=== PATIENT | female | born 1960 | race Two or more races ===

== ENCOUNTER 2017-02-03 16:24 | Emergency (ER) | payer BC, OTHER ==
[~2017-02-03] VITALS: Ht 154.9 cm; Wt 54.0 kg
[~2017-02-03 16:24] MED LIST: diovan; potassium
[2017-02-03 16:35] VITALS: BP 109/69
[2017-02-03] MEDS ORDERED: KETOROLAC 30 MG/1 ML IM ONE (17:00)
[2017-02-03] MEDS ORDERED: LOSA25TA5 PO (17:44)
[2017-02-03] MEDS ORDERED: KETOROLAC 30 MG/1 ML ONE (18:00)
== END 2017-02-03 18:52 | disposition home or self-care (01) ==
LOC: ED 18:46
DX: S29.012A Strain of muscle and tendon of back wall of thorax, initial encounter (principal); I10 Essential (primary) hypertension; X58.XXXA Exposure to other specified factors, initial encounter; Y93.89 Activity, other specified; Y92.89 Other specified places as the place of occurrence of the external cause; Y99.9 Unspecified external cause status
CPT/HCPCS: 96372; 99283; J1885

== ENCOUNTER 2019-08-22 20:12 | Emergency (ER) | payer SELFPAY ==
[~2019-08-22] VITALS: Ht 162.6 cm; Wt 62.1 kg
[~2019-08-22 20:12] MED LIST changes: +LOSA25TA25 PO
[2019-08-22 20:19] VITALS: BP 145/89
[2019-08-22] MEDS ORDERED: PHENAZOPYRIDINE 200 MG TABLET PO ONE (20:30)
[2019-08-22 20:58] LABS: MICROSCOPIC INDICATED
[2019-08-22 21:01] LABS: CULTURE INDICATED? YES
[2019-08-22] MEDS ORDERED: CEFDINIR 300 MG CAPSULE ONE (21:24)
[2019-08-22] MEDS ORDERED: PHENAZOPYRIDINE 200 MG TABLET ONE (21:24)
[2019-08-22] MEDS ORDERED: CEFDINIR 300 MG CAPSULE PO ONE (21:30)
== END 2019-08-22 21:29 ==
LOC: ED 21:23
DX: N39.0 Urinary tract infection, site not specified (principal); I10 Essential (primary) hypertension
CPT/HCPCS: 81001; 87077; 87086; 87186; 99283

== ENCOUNTER 2021-03-28 16:08 | Emergency (ER) | payer BC, OTHER ==
--- NOTE | 2021-03-28 18:06 | NUR ---
tipple oiler: Pt ambulatory to room from lobby at this time.
--- NOTE | 2021-03-28 18:40 | NUR ---
PT AMBULATORY TO BR WITH STEADY GAIT. URINE COLLECTED/SENT TO LAB. CALL LIGHT WITHIN REACH.
[2021-03-28 18:50] LABS: MICROSCOPIC NOT IND
[2021-03-28 18:56] LABS: BASOPHILS % (AUTO) 1 % (0-1); EOSINOPHILS % (AUTO) 3 % (1-7); LYMPHOCYTES % (AUTO) 52 % (22-44); MEAN CORPUSCULAR HGB CONC 33.4 g/dL (32.4-35.8); MEAN PLATELET VOLUME 8.5 fL (7.4-10.4); MONOCYTES % (AUTO) 10 % (2-9); NEUTROPHILS % (AUTO) 35 % (42-75); PLATELET COUNT 400 x10^3/uL (130-400); RED BLOOD COUNT 4.97 x10^6/uL (3.82-5.3); RED CELL DISTRIBUTION WIDTH 13.4 % (9.6-15.2)
[2021-03-28 19:03] LABS: ALBUMIN 3.7 g/dL (3.4-5.0); ANION GAP 3 mmol/L (5-15); CALCIUM 9.3 mg/dL (8.5-10.1); CHLORIDE 107 mmol/L (98-107); CREATININE 0.67 mg/dL (0.55-1.02)
--- NOTE | 2021-03-28 19:04 | NUR ---
Break RN: patient to MRI.
--- NOTE | 2021-03-28 19:38 | NUR ---
PT BACK FROM MRI.
[2021-03-28 19:47] VITALS: BP 124/83
--- NOTE | 2021-03-28 19:54 | NUR ---
ALL RESULTS BACK, PT FOR RECHECK.
--- NOTE | 2021-03-28 20:27 | NUR ---
Patient given discharge instructions and they have confirmed that they understand the instructions. Patient ambulatory with steady gait. NAD, all questions answered appropriately, denies additional needs at this time. No personal belongings left in room after discharge.
== END 2021-03-28 20:29 | disposition home or self-care (01) ==
LOC: ED 16:38
DX: M54.41 Lumbago with sciatica, right side (principal); R32 Unspecified urinary incontinence; E03.9 Hypothyroidism, unspecified; M54.6 Pain in thoracic spine
CPT/HCPCS: 36415; 72148; 80048; 81003; 82040; 85025; 99284